=== PATIENT | female | born 1970 | race Caucasian/White ===

== ENCOUNTER 2017-03-20 19:35 | Emergency (ER) | payer OTHER ==
[~2017-03-20] VITALS: Ht 152.4 cm; Wt 80.6 kg
[~2017-03-20 19:35] MED LIST: ABILIFY DISCMEL15 MG PO; ACETAMINOPHEN325 M1 PO; BUSPAR5 MG PO; GEODON20 MG PO; LIPITOR40 MG PO; LISINOPRIL10 MG PO; MELATONIN5 M1 PO; MUCINEX600 MG PO; OXCARBAZEP300 MG/5 M PO; OXCARBAZEPINE300 MG PO; PRAVASTATIN SOD40 MG PO; SERTRALINE HCL50 MG PO; SERTRALINE20 MG/1 ML PO; TRILEPTAL300 MG/5 M PO; TRIPLE ANTIBIO1 EACH TP; ZYRTEC10 M3
[2017-03-20 21:58] VITALS: BP 140/84
== END 2017-03-20 22:07 | disposition home or self-care (01) ==
LOC: EXP 19:35 → EME 19:35 → EXP 22:07
DX: T17.928A Food in respiratory tract, part unspecified causing other injury, initial encounter (principal); E11.9 Type 2 diabetes mellitus without complications; F17.200 Nicotine dependence, unspecified, uncomplicated
CPT/HCPCS: 71020; 99281; 99283